=== PATIENT | female | born 1995 | race Caucasian/White ===

== ENCOUNTER 2019-03-11 13:28 | Inpatient (IN) ==
[2019-03-11] MEDS: Epidural Premix (fent/bupiv) 110 ML EP SCH (00:42)
[2019-03-11] MEDS ORDERED: Metoclopramide 10 MG/2 ML VIAL IVP PRN (13:50)
[2019-03-11] MEDS ORDERED: Famotidine 20 MG/2 ML VIAL IVP PRN (13:50)
[2019-03-11] MEDS ORDERED: Lidocaine 1% 20 ML MDV INFILT PRN (13:50)
[2019-03-11] MEDS ORDERED: Naloxone 0.4 MG/ML INJ IVP PRN (13:50)
[2019-03-11] MEDS ORDERED: *HR* Nalbuphine 10 MG/ML AMPUL IVP PRN (13:50)
[2019-03-11] MEDS ORDERED: Ondansetron 4 MG/2 ML VIAL IVP PRN (13:50)
[2019-03-11] MEDS ORDERED: FLU Vac QV 19-20 (6Month+)/PF 0.5 ML SYRINGE IM PRN (14:17)
[2019-03-11] MEDS ORDERED: FLU Vac QV 19-20 (6Month+)/PF 0.5 ML SYRINGE IM ONE (14:29)
[2019-03-11 15:30] LABS: Amphetamine Screen,Urine Negative ng/mL (Cutoff=1000); Barbiturate Screen,Urine Negative ng/mL (Cutoff=200); Benzodiazepines Screen,Urine Negative ng/mL (Cutoff=200); Cannabinoid Screen,Urine Negative ng/mL (Cutoff = 50); Cocaine Screen,Urine Negative ng/mL (Cutoff= 300); Opiate Screen,Urine Negative ng/mL (Cutoff=300); Phencyclidine Screen,Urine Negative ng/mL (Cutoff=25)
[2019-03-11 15:32] LABS: Basophils # 0.1 K/mcL (0.0-0.2); Basophils % 0.5 %; Eosinophils # 0.1 K/mcL (0.0-0.6); Eosinophils % 0.7 %; Hematocrit 32.4 % (35.3-44.9); Hemoglobin 10.1 g/dL (11.5-15.4); Immature Granulocytes % 1.1 % (0-4); Lymphocytes # 1.8 K/mcL (0.6-4.6); Lymphocytes % 17.8 %; Mean Corpuscular HGB Conc 31.2 g/dL (31.6-35.5); Mean Corpuscular Hemoglobin 25.9 pg (28.0-33.3); Mean Corpuscular Volume 83.1 fL (83.0-100.0); Mean Platelet Volume 12.4 fL (9.4-12.4); Monocytes # 0.8 K/mcL (0.0-1.3); Monocytes % 7.8 %; Neutrophils # 7.3 K/mcL (1.6-8.9); Platelet Count 238 K/mcL (140-400); Red Cell Distribution Width 14.9 % (11.5-14.5); Segmented Neutrophils % 72.1 %; White Blood Count 10.2 K/mcL (4.3-11.1)
[2019-03-11] MEDS: Ringers Solution, Lactated 1,000 ML IVC SCH (16:01)
[2019-03-11] MEDS: miSOPROStol 25 MCG TABLET PO PRN ×2 (16:01→20:13)
[2019-03-12] MEDS ORDERED: Terbutaline 1 MG/ML VIAL SQ ONE (00:50)
[2019-03-12] MEDS ORDERED: EPHEDrine 50 MG/ML VIAL ONE (00:50)
[2019-03-12] MEDS: Oxytocin 20 units/ LR 1000 mL 20 UNIT/1,000 ML BAG IVC SCH (05:42)
[2019-03-12] MEDS ORDERED: Ropivacaine/PF 0.2% 20 ML VIAL ONE (18:17)
[2019-03-12] MEDS ORDERED: *HR* FentaNYL (PF) 100 MCG/2 ML VIAL ONE (18:17)
[2019-03-12] MEDS ORDERED: Acetaminophen IV 1,000 MG/100 ML INFUS..BTL IVPB ONE (19:08)
[2019-03-12] MEDS ORDERED: Gentamicin 300 MG in 0.9 % Sodium Chloride 100 ML IVPB ONE (20:00)
[2019-03-12] MEDS ORDERED: Gentamicin 400 MG in 0.9 % Sodium Chloride 100 ML IVPB SCH (20:00)
[2019-03-12] MEDS: Epidural Premix (fent/bupiv) 110 ML EP SCH (23:10)
[2019-03-13] MEDS ORDERED: Ibuprofen 600 MG TABLET PO ONE (04:12)
[2019-03-13] MEDS: Oxytocin 20 units/ LR 1000 mL 20 UNIT/1,000 ML BAG IVC SCH ×3 (04:36→13:23)
[2019-03-13] MEDS ORDERED: Lanolin 7 G OINT...G. TP PRN (06:55)
[2019-03-13] MEDS ORDERED: Benzocaine/Menthol 56 GM AEROSOL SPRAY TP PRN (06:55)
[2019-03-13] MEDS: Prenatal Vit/FA 1 EACH TABLET PO SCH (08:05)
[2019-03-13] MEDS: *HR* HYDROcodone/Acet 5/325 mg TABLET PO PRN ×2 (08:05→14:23)
[2019-03-13] MEDS: Ringers Solution, Lactated 1,000 ML IVC SCH ×3 (08:12→08:14)
[2019-03-13] MEDS: Ampicillin 2 GM in 0.9 % Sodium Chloride Mini Bag 100 ML IVPB SCH ×2 (08:13→08:14)
[2019-03-13] MEDS: Ibuprofen 600 MG TABLET PO PRN ×2 (10:20→17:08)
[2019-03-13] MEDS: Acetaminophen 325 MG TABLET PO PRN (20:02)
[2019-03-14] MEDS: Ibuprofen 600 MG TABLET PO PRN ×2 (00:05→07:36)
[2019-03-14] MEDS: Acetaminophen 325 MG TABLET PO PRN (06:37)
[2019-03-14] MEDS: Prenatal Vit/FA 1 EACH TABLET PO SCH (07:36)
[2019-03-14 08:26] VITALS: BP 116/78
[2019-03-14] MEDS ORDERED: FLU Vac QV 19-20 (6Month+)/PF 0.5 ML SYRINGE IM ONE (13:53)
== END 2019-03-14 14:45 | disposition home or self-care (01) | DRG 806 ==
LOC: 1NENULAB 13:28 → 1NENUOBS 03-13 06:54
PROVIDERS: ADMIT Student in an Organized Health Care Education/Training Program; ATTEND Student in an Organized Health Care Education/Training Program